=== PATIENT | female | born 1975 ===

== ENCOUNTER 2018-09-24 08:52 | Emergency (ER) | payer BC, MEDICAID, SELFPAY ==
[2018-09-24 09:17] VITALS: PULSE 72
[2018-09-24] MEDS ORDERED: DiphenhydrAMINE 50 mg/ml Inj IVP STA (09:25)
[2018-09-24] MEDS ORDERED: DiphenhydrAMINE 50 mg/ml Inj ONE (09:32)
--- NOTE | 2018-09-24 09:49 | C.PDOC ---
History Of Present Illness 43 year old female presents to the emergency department with complaints of a right-sided headache for the last two days with gradual onset. Patient denies thunderclap. She states that the headache is associated with nausea, vomiting, and photophobia. She states that this is not her first, worst, or longest lasting headache. Time Seen by Provider: 09/24/18 09:13 Chief Complaint (Nursing): Headache History Per: Patient History/Exam Limitations: no limitations Onset/Duration Of Symptoms: Days (2) Current Symptoms Are (Timing): Still Present Quality: Aching Associated Symptoms: Photophobia, Nausea, Vomiting Past Medical History Reviewed: Historical Data, Nursing Documentation, Vital Signs Vital Signs: Last Vital Signs Temp 97.9 F 09/24/18 09:13 Pulse 72 09/24/18 09:13 Resp 16 09/24/18 09:13 BP 137/87 09/24/18 09:13 Pulse Ox 98 09/24/18 09:13 - Medical History PMH: Hyperthyroidism, Hypothyroidism Denies: Chronic Kidney Disease Surgical History: Appendectomy, Cholecystectomy, (4) - [facility]Y [facility] (08/04/14) Family History: States: No Known Family Hx - Social History Hx Tobacco Use: No Hx Alcohol Use: No Hx Substance Use: No - Immunization History Hx Tetanus Toxoid Vaccination: No Hx Influenza Vaccination: No Hx Pneumococcal Vaccination: No Review Of Systems Except As Marked, All Systems Reviewed And Found Negative. Neurological: Positive for: Headache Physical Exam - Physical Exam Appears: Non-toxic, No Acute Distress Skin: Normal Color, Warm, Dry Head: Atraumatic, Normacephalic Eye(s): bilateral: Normal Inspection, PERRL, EOMI Nose: Normal Oral Mucosa: Moist Neck: Normal, Supple Chest: Symmetrical, No Tenderness Cardiovascular: Rhythm Regular, No Murmur Respiratory: Normal Breath Sounds, No Rales, No Rhonchi, No Wheezing Gastrointestinal/Abdominal: Soft, No Tenderness, No Guarding, No Rebound Extremity: Bilateral: Atraumatic, Normal Color And Temperature, Normal ROM Neurological/Psych: Oriented x3, Normal Speech ED Course And Treatment - Laboratory Results Result Diagrams: 09/24/18 09:49 09/24/18 09:49 O2 Sat by Pulse Oximetry: 98 (RA) Pulse Ox Interpretation: Normal - CT Scan/US CT Head Other Rad Studies (CT/US): Read By Radiologist, Radiology Report Reviewed CT/US Interpretation: IMPRESSION: No acute intracranial pathology identified. Medical Decision Making Medical Decision Making: Plan: CT Head Chemistry Bloodwork Benadryl 25mg IVP Reglan 10mg IVP HCG Qualitative Urine Urinalysis Assessment: Headache patient resting comfortably and states resolution of headache. NO complaints now. NO nausea, no vomiting. Will discharge home to follow up with neurology within 2 days. Headache is gradual onset. Disposition - Disposition Referrals: Alan Baig MD [Staff Provider] - Disposition: HOME/ ROUTINE Disposition Time: 11:59 Condition: IMPROVED Additional Instructions: follow up with neurology within 2 days call to make an appointment return to ER if symptoms worsens or progress continue your medications at home. Instructions: Headache, Adult Forms: General Discharge Instructions, [facility] ([place]), Work Excuse - Clinical Impression Clinical Impression: Headache - Scribe Statement The provider has reviewed the documentation as recorded by the Scribe (Brandt Queen) Provider Attestation: All medical record entries made by the Scribe were at my direction and personally dictated by me. I have reviewed the chart and agree that the record accurately reflects my personal performance of the history, physical exam, medical decision making, and the department course for this patient. I have also personally directed, reviewed, and agree with the discharge instructions and disposition.
[2018-09-24 09:54] LABS: BASO % 0.2 % (0.0-2.0); EOS % 0.2 % (0.0-4.0); HEMOGLOBIN 13.9 g/dL (11.0-16.0); LYMPH # 0.8 K/uL (1.0-4.3); MEAN CELL VOLUME 87.9 fL (81.0-99.0); MEAN CORPUSCULAR HEMOGLOBIN 29.1 pg (27.0-31.0); MEAN CORPUSCULAR HGB CONC 33.1 g/dL (33.0-37.0); MEAN PLATELET VOLUME 9.9 fL (7.2-11.7); MONO # 0.5 K/uL (0.0-0.8); MONO % 4.3 % (0.0-10.0); NEUT # 9.5 K/uL (1.8-7.0); NEUT % 88.3 % (50.0-75.0); PLATELET COUNT 229 K/uL (130-400); RBC 4.77 Mil/uL (3.80-5.20); RED CELL DISTRIBUTION WIDTH 13.4 % (11.5-14.5); WHITE BLOOD COUNT 10.8 K/uL (4.8-10.8)
[2018-09-24 09:59] LABS: HCG,QUALITATIVE URINE NEGATIVE (NEGATIVE)
[2018-09-24 10:03] LABS: SQUAMOUS EPITHIAL 4 /hpf (0-5); URINE BACTERIA RARE (<OCC); URINE BILIRUBIN NEGATIVE (NEGATIVE); URINE CLARITY Hazy (Clear); URINE COLOR Yellow (YELLOW); URINE GLUCOSE (UA) NORMAL (Normal); URINE LEUKOCYTE ESTERASE 2+ Leu/uL (Negative); URINE PROTEIN NEGATIVE (NEGATIVE); URINE UROBILINOGEN NORMAL mg/dL (0.2-1.0)
[2018-09-24 10:04] LABS: URINE BLOOD TRACE (NEGATIVE)
[2018-09-24 10:07] LABS: ALB/GLOB RATIO 1.3 (1.0-2.1); ALT/SGPT 47 U/L (9-52); AST/SGOT 28 U/L (14-36); BLOOD UREA NITROGEN 13 mg/dL (7-17); CALCIUM 8.7 mg/dl (8.6-10.4); GFR NON-AFRICAN AMERICAN > 60
[2018-09-24 10:16] LABS: BASOPHIL 1 % (0-2); LYMPHOCYTE 6 % (20-40); MONOCYTE 4 % (0-10); NEUTROPHIL 89 % (50-75); PLATELET ESTIMATE NORMAL (NORMAL); TOTAL CELLS COUNTED 100
--- NOTE | 2018-09-24 10:25 | CT ---
Date of service: 09/24/2018 PROCEDURE: CT HEAD WITHOUT CONTRAST. HISTORY: Headache COMPARISON: None available. TECHNIQUE: Axial computed tomography images were obtained through the head/brain without intravenous contrast. Radiation dose: Total exam DLP = 1097.06 mGy-cm. This CT exam was performed using one or more of the following dose reduction techniques: Automated exposure control, adjustment of the mA and/or kV according to patient size, and/or use of iterative reconstruction technique. FINDINGS: HEMORRHAGE: No intracranial hemorrhage. BRAIN: No mass effect or edema. The harris-white matter differentiation appears intact. Please note that MRI with diffusion imaging is more sensitive in the detection of acute ischemic event. VENTRICLES: No hydrocephalus. CALVARIUM: Unremarkable. PARANASAL SINUSES: Unremarkable as visualized. No significant inflammatory changes. MASTOID AIR CELLS: Unremarkable as visualized. No inflammatory changes. OTHER FINDINGS: None. IMPRESSION: No acute intracranial pathology identified.
[2018-09-24 11:19] LABS: ERYTHROCYTE SEDIMENTATION RATE 13 mm/hr (0-20)
[2018-09-24 12:08] VITALS: BP 130/72; RESP 18; TEMP 98.2
[2018-09-25 18:37] VITALS: O2SAT 98
== END 2018-09-24 12:13 | disposition home or self-care (01) ==
LOC: C.ER 08:52
DX: R51 Headache (principal)
CPT/HCPCS: 70450; 80053; 81001; 84703; 85025; 85651; 96374; 96375; 99285; J1200; J2765